=== PATIENT | female | born 1985 | race Caucasian/White ===

== ENCOUNTER → 2017-09-24 | Outpatient (CLI) | payer OTHER | LOC: FIMAGING 07:11 | PROVIDERS: ATTEND Advanced Practice Midwife | DX: O09.812 Supervision of pregnancy resulting from assisted reproductive technology, second trimester (principal); O44.02 Complete placenta previa NOS or without hemorrhage, second trimester; O99.282 Endocrine, nutritional and metabolic diseases complicating pregnancy, second trimester; E03.9 Hypothyroidism, unspecified; Z3A.19 19 weeks gestation of pregnancy ==

== ENCOUNTER → 2017-10-23 | Outpatient (CLI) | payer OTHER | LOC: FIMAGING 11:42 | PROVIDERS: ATTEND Advanced Practice Midwife | DX: O36.62X0 Maternal care for excessive fetal growth, second trimester, not applicable or unspecified (principal); O09.812 Supervision of pregnancy resulting from assisted reproductive technology, second trimester; O99.282 Endocrine, nutritional and metabolic diseases complicating pregnancy, second trimester; E03.9 Hypothyroidism, unspecified; Z3A.23 23 weeks gestation of pregnancy ==

== ENCOUNTER → 2017-12-06 | Outpatient (CLI) | payer OTHER | LOC: FIMAGING 12:13 | PROVIDERS: ATTEND Advanced Practice Midwife | DX: O09.813 Supervision of pregnancy resulting from assisted reproductive technology, third trimester (principal); Z3A.29 29 weeks gestation of pregnancy ==